=== PATIENT | female | born 1980 ===

== ENCOUNTER 2019-11-14 11:00 | Outpatient (CLI) | payer BC, OTHER | END 2019-11-14 11:01 | disposition home or self-care (01) | LOC: SLR 11:00 | PROVIDERS: ATTEND Otolaryngology | DX: G47.33 Obstructive sleep apnea (adult) (pediatric) (principal) | CPT/HCPCS: 95810 ==

== ENCOUNTER 2019-11-22 15:17 | Outpatient (CLI) | payer BC, OTHER | END 2019-11-22 15:18 | disposition home or self-care (01) | LOC: SLR 15:17 | PROVIDERS: ATTEND Otolaryngology | DX: G47.33 Obstructive sleep apnea (adult) (pediatric) (principal) | CPT/HCPCS: 95811 ==